=== PATIENT | female | born 1940 | race Caucasian/White ===

== ENCOUNTER → 2018-01-18 | Outpatient (CLI) | payer BC ==
[~2018-01-18] VITALS: Ht 149.9 cm; Wt 93.9 kg
[~2018-01-18] MED LIST: ALLOPURINOL 10100 M1; ASPIR 8181 MG PO; ATENOLOL 50MG T50 M1 PO; DOCUSATE CALCI240 MG PO; HUMALOG100 UNIT/1 SUBQ; KLOR-CON 1010 MEQ PO; LANTUS100 UNIT/M SUBQ; LIPITOR 20 MG T20 M1 PO; MAXZIDE-25 MG1 EACH PO; METFORMIN HCL500 MG PO; SYNTHROID75 MCG PO; ZOLOFT50 MG PO
[2018-01-18 09:46] LABS: HEMATOCRIT 36.6 % (37.0-47.0); HEMOGLOBIN 12.1 gm/dL (12.0-15.0); MCH 33.1 pg (26.0-34.0); MCV 100.3 fL (80.0-100.0); MPV 7.3 fl. (7.2-11.1); RBC 3.65 mil/uL (4.20-5.00); RDW-CV 14.5 % (10.5-14.5); WBC 5.9 thou/uL (4.0-11.0)
[2018-01-18 09:47] VITALS: BP 141/61
[2018-01-18 09:52] LABS: ANION GAP 8 mmol/L (7-16); BUN 24 mg/dL (7-18); CALCIUM 9.2 mg/dL (8.5-10.1); CHLORIDE 105 mmol/L (98-107); CO2 26 mmol/L (21-32); CREATININE 0.9 mg/dL (0.6-1.3); GLUCOSE 130 mg/dL (70-99); POTASSIUM 3.9 mmol/L (3.5-5.1); SODIUM 139 mmol/L (136-145)
[2018-01-18 09:53] LABS: APTT 25.1 Seconds (25.0-31.3); PROTIME 10.2 Seconds (9.20-11.50)
[2018-01-18 09:56] LABS: ALKALINE PHOSPHATASE 59 U/L (46-116); CHOLESTEROL 141 mg/dL (<200); HDL CHOLESTEROL 43 mg/dL (>40); LDL CHOLESTEROL 60 mg/dL (<100); SGOT 18 U/L (15-37); SGPT 25 U/L (30-65); TC:HDL 3.3 Ratio (Not establshd); TOTAL BILIRUBIN 0.3 mg/dL (<0.1-1.0); TOTAL PROTEIN 7.5 g/dL (6.4-8.2); TRIGLYCERIDE 191 mg/dL (<150); VLDL 38 mg/dL (<40)
[2018-01-18 09:59] LABS: SERUM ASSESSMENT Clear
[2018-01-18 12:59] VITALS: BP 153/60
[2018-01-18 13:33] VITALS: BP 141/61
[2018-01-18 14:38] VITALS: BP 151/46
--- NOTE | 2018-01-18 15:36 | EKG ---
[place] [address] ELECTROCARDIOGRAM REPORT Name: MIRI BARRAZA Room: [facility]#: [id number] Admission: 01/18/18 Attend Phys: Vickey Diaz MD Discharge: Date of : 40 Report #: [id number] THIS REPORT FOR: //name// [facility] Test Date: 2018-01-18 Test Time: 10:24:32 Pat Name: MIRI BARRAZA Department: Room: Gender: F Compliance Engineer: : [id number] Requested By: Vickey Diaz Order Number: [id number] Reading MD: Vcikey Diaz Measurements Intervals [place] Rate: 52 P: 8 MT: 181 QRS: -38 QRSD: 141 T: -2 QT: 515 QTc: 479 Interpretive Statements Sinus rhythm Right bundle branch block Left ventricular hypertrophy, bivoltage No previous ECG available for comparison Electronically Signed On 01-18-2018 15:35:59 CDT by Vickey Diaz [email or web address] <ELECTRONICALLY SIGNED> By: Vickey Diaz MD, [facility] 01/18/18 1535 1024 1024 Vickey Diaz MD, FACC /EPI
[2018-01-18 15:50] VITALS: BP 159/47
--- NOTE | 2018-01-20 10:22 | CARD ---
[address] [address] CARDIAC CATH REPORT Name: MADIMIRI M Room: [facility]#: [id number] Admission: 01/18/18 Attend Phys: Vickey Diaz MD Discharge: Date of : 40 Report #: [id number] THIS REPORT FOR: //name// APPROVED REPORT Study performed: 01/18/2018 11:03:48 Patient Details Patient Status: Out-Patient Room #: The patient is a 77 year-old female Event Personnel Vickey Diaz Invasive Cardiovascular Technologist, Glo Morales RN Senior Bookkeeper, Carly Rutledge Monitor Procedures Performed Left heart catheterization with coronary angiography.Art Access - R radial artery , Selective Right and Left Coronary Angiography Procedure Narrative The patient was brought electively to the Cardiac Catheterization Laboratory and was prepped and draped in a sterile manner. The right wrist was infiltrated with 2% Lidocaine subcutaneous anesthesia. A Slender Glidesheath sheath was inserted into the right radial artery. Coronary angiography was performed using coronary diagnostic catheters. The right coronary system was accessed and visualized with a DCR: Spraggs 4.0 5frDiagnostic catheter. The left coronary system was accessed and visualized with a Guide 6fr EBU catheter. Intraoperative Conscious Sedation Sedation start time: 11:40 Case end Time: 12:30 Fentanyl 25 mcg Versed 1 mg Fluoro Time: 19.8 minutes Dose: DAP 547651 cGycm2 1894.39 mGy Contrast Type and Amount: Omnipaque 110 ml Diagnostic Cath Left Main The left main coronary artery is somewhat long in caliber and trifurcates into a left anterior descending, intermediate ramus and circumflex coronary artery. There is a high-grade approximately 90% stenosis which appears to [place] [address] CARDIAC CATH REPORT Name: MIRI BARRAZA Room: [facility]#: [id number] Admission: 01/18/18 Attend Phys: Vickey Diaz MD Discharge: Date of : 40 Report #: [id number] LAD. LAD High-grade 90% ostial stenosis. 70% mid LAD stenosis. The remainder the vessel is free of significant disease. Diagonal 1 There is a very distal takeoff of a diagonal branch that appears normal. Circumflex The circumflex ostium appears to be involved with a distal left main stenosis with approximately 70% narrowing. The remainder the vessel is normal. OM1 The first obtuse marginal branch and large in size and free of significant disease. OM2 The second obtuse marginal branch is small in size and free of significant disease. Right Coronary The right coronary artery is minimally plaqued approximately 10% proximally. The remainder the vessel appears normal. R PDA There is a moderate size PDA that appears normal. RPLV A moderate size single branched posterior lateral LV branch appears normal. Ramus The intermediate ramus has ostial narrowing as outlined above. The remainder the vessel appeared normal. Left Ventriculography Left Ventriculography was not performed. Hemodynamics The aortic pressure is 109/52 mmHg with a mean of 78 mmHg. The left ventricular end diastolic pressure is 20 mmHg. There was no gradient across the aortic valve upon pullback. Conclusion Significant distal left main disease involving the origin of the LAD, circumflex and intermediate ramus branch. Mildly elevated left ventricular end-diastolic pressure. Recommendations Consider coronary artery bypass grafting. Continue aggressive risk factor modification. <ELECTRONICALLY SIGNED> By: Vickey Diaz MD, FACC 01/20/18 1022 1022 1022Miccody Diaz MD, FACC /INF
== END | disposition home or self-care (01) ==
LOC: M.CL 08:56
PROVIDERS: Internal Medicine Cardiovascular Disease
DX: I25.10 Atherosclerotic heart disease of native coronary artery without angina pectoris (principal); I50.1 Left ventricular failure, unspecified; I10 Essential (primary) hypertension; E78.5 Hyperlipidemia, unspecified; G47.33 Obstructive sleep apnea (adult) (pediatric); Z90.49 Acquired absence of other specified parts of digestive tract; Z98.890 Other specified postprocedural states; Z88.0 Allergy status to penicillin; Z88.8 Allergy status to other drugs, medicaments and biological substances; Z79.82 Long term (current) use of aspirin; Z79.899 Other long term (current) drug therapy; Z79.01 Long term (current) use of anticoagulants